=== PATIENT | female | born 1970 | race Caucasian/White ===

== ENCOUNTER → 2017-04-04 | Outpatient (CLI) | payer OTHER ==
--- NOTE | 2017-04-04 13:21 | DIAGNOSTIC IMAGING REPORT ---
RIGHT HAND 3 VIEWS CLINICAL HISTORY: Right hand pain. FINDINGS: 3 views of the right hand are obtained. No prior studies are available for comparison at the time of dictation. The skeletal structures are well mineralized. No fracture is seen. The joint spaces of the hand are preserved. No erosive change is seen. The overlying soft tissues are within normal limits. IMPRESSION: Unremarkable radiographic assessment of the right hand. Electronically signed by: Nazario Crowder M.D. 04/04/2017 1:19 PM Dictated Date/Time: 04/04/2017 1:18 PM
--- NOTE | 2017-04-04 13:42 | DIAGNOSTIC IMAGING REPORT ---
LEFT HAND MIN 3 VIEWS ROUTINE CLINICAL HISTORY: Left hand pain COMPARISON: None. DISCUSSION: No fractures are visualized. There is no evidence of significant joint space narrowing. There are no erosive or destructive changes. IMPRESSION: No evidence of fracture. No evidence of erosive disease. Electronically signed by: Mike Soto M.D. 04/04/2017 1:40 PM Dictated Date/Time: 04/04/2017 1:40 PM
== END | disposition home or self-care (01) ==
LOC: C.RADBC 12:52
PROVIDERS: ATTEND Nurse Practitioner Family
DX: M25.541 Pain in joints of right hand (principal); M25.542 Pain in joints of left hand

== ENCOUNTER → 2017-08-29 | Outpatient (CLI) | payer OTHER ==
--- NOTE | 2017-08-29 12:12 | DIAGNOSTIC IMAGING REPORT ---
FUSION CT SINUSES W/O HISTORY: HEADACHE, RECURRENT SINUSITIS TECHNIQUE: Multiaxial CT images of the sinuses were performed reformatted in the coronal plane without the use of intravenous contrast. Fusion CT sinus protocol was also performed. COMPARISON STUDY: None. FINDINGS: Small retention cysts within the floors of the bilateral maxillary sinuses with the largest on the right measuring 11 mm. No fluid levels within the paranasal sinuses. The frontal sinuses, ethmoid air cells, sphenoid sinuses, and mastoid air cells are clear. Mild left nasal septal deviation with a small left sided nasal spur. The bilateral ostiomeatal units are patent. There is an 8 mm right-sided Marybel cell. The orbital floors and lamina papyracea are intact. The left ethmoid roof is positioned 2 mm inferior to the right ethmoid roof. The cribriform plates are symmetric. Tiny bilateral claire bullosa. Bilateral anterior clinoids are partially pneumatized. The visualized brain parenchyma and orbits are unremarkable. IMPRESSION: 1. Small retention cysts within the floors of the bilateral maxillary sinuses. No fluid levels within the paranasal sinuses. 2. The mastoid air cells are clear. 3. Additional anatomical findings as described above. Electronically signed by: Feliciano Munoz M.D. 08/29/2017 12:11 PM Dictated Date/Time: 08/29/2017 11:58 AM
== END | disposition home or self-care (01) ==
LOC: C.CTS 11:11
DX: R51 Headache (principal)

== ENCOUNTER → 2018-01-27 | Outpatient (CLI) | payer OTHER ==
[2018-01-27 10:51] LABS: BASO % 0.2 %; BASO ABS # 0.03 K/uL (0-0.2); EOS % 2.3 %; HEMOGLOBIN 14.6 g/dL (12.0-16.0); IG# 0.02 K/uL (0.00-0.02); LYMPH % 17.8 %; MEAN CORPUSCULAR HEMOGLOBIN 32.6 pg (25-34); MEAN PLATELET VOLUME 10.6 fL (7.4-10.4); MONO % 7.6 %; MONO ABS # 0.98 K/uL (0.11-0.59); NEUT % 71.9 %; NEUT ABS # 9.31 K/uL (1.4-6.5); PLATELET COUNT 346 K/uL (130-400); RED CELL DISTRIBUTION WIDTH CV 12.8 % (11.5-14.5); RED CELL DISTRIBUTION WIDTH SD 44.5 fL (36.4-46.3); WHITE BLOOD COUNT 12.94 K/uL (4.8-10.8)
[2018-01-27 11:06] LABS: ALT/SGPT 20 U/L (12-78); BLOOD UREA NITROGEN 15 mg/dl (7-18); CALCIUM 9.3 mg/dl (8.5-10.1); CARBON DIOXIDE 27 mmol/L (21-32); CREATININE 0.67 mg/dl (0.60-1.20); GLUCOSE 101 mg/dl (70-99); POTASSIUM 4.2 mmol/L (3.5-5.1); SODIUM 136 mmol/L (136-145)
[2018-01-27 11:09] LABS: ALKALINE PHOSPHATASE 66 U/L (45-117); AST/SGOT 13 U/L (15-37)
== END | disposition home or self-care (01) ==
LOC: C.LABBC 09:07
PROVIDERS: ATTEND Psychiatry & Neurology Neurology
DX: G43.909 Migraine, unspecified, not intractable, without status migrainosus (principal)

== ENCOUNTER → 2018-06-25 | Outpatient (CLI) | payer OTHER ==
--- NOTE | 2018-06-25 10:20 | DIAGNOSTIC IMAGING REPORT ---
PELVIC ULTRASOUND CLINICAL HISTORY: Dysfunctional uterine bleeding. COMPARISON STUDY: None. TECHNIQUE: Transabdominal and transvaginal sonography of the pelvis was performed. FINDINGS: The uterus measures 6 x 3.2 x 3.6 cm. Endometrium measures 3 mm in thickness. Left ovary measures 2.2 x 2.2 x 2.3 cm. There is a 1.9 cm cystic lesion within left ovary which favors a dominant follicle. Right ovary measures 2.4 x 1.8 x 1.8 cm. There is color flow within each ovary. There is no free fluid. There is no adnexal mass. Apparent 1.1 cm solid right ovarian lesion is noted. This may be artifactual. IMPRESSION: 1. Unremarkable sonographic appearance of the uterus. Normal endometrial thickness of 3 mm. 2. Apparent 1.1 cm isoechoic lesion within the right ovary. This is low suspicion however a follow-up pelvic ultrasound in 3 months is recommended. 3. 1.9 cm cystic left ovarian lesion which favors a dominant follicle. This can be assessed on follow-up ultrasound. Electronically signed by: Shailesh Lyons M.D. 06/25/2018 10:19 AM Dictated Date/Time: 06/25/2018 10:16 AM
== END | disposition home or self-care (01) ==
LOC: C.ULTR 08:58
PROVIDERS: ATTEND Nurse Practitioner Family
DX: N93.8 Other specified abnormal uterine and vaginal bleeding (principal)